=== PATIENT | female | born 1945 | race Caucasian/White ===

== ENCOUNTER → 2017-08-26 | Outpatient (CLI) | payer MEDICARE, MEDICAID ==
[~2017-08-26] MED LIST: ASPIRIN325 MG; ATORVASTATIN CA80 MG PO; B12; BACTRIM DS 8001 TA1; CITALOPRAM40 MG; CITALOPRAM40 MG PO; COPPERAS1 CRE; EFFIENT10 MG; HYDROCHLOROTHIA25 MG; IMDUR60 MG; LIPITOR80 MG; LISINOPRIL20 MG PO; MEDROL DOSEPAK4 MG PO; METOPROLOL SR50 MG; MS CONTIN15 MG PO; NITROSTAT0.4 MG SL; PEPCID20 MG; PEPCID20 MG PO; PROTONIX40 MG; RANEXA500 MG; ROBITUSSIN-AC 160 ML PO; SYNTHROID,LEV112 MCG; SYNTHROID0.2 M1 PO; VIBRAMYCIN100 MG PO; VICO10300 PO; VICODIN ES 7501 TA1 PO; XANAX0.25 MG PO; XANAX0.5 MG PO; ZOFRAN4 MG PO; ZOLOFT25 MG PO; ZOLOFT50 MG PO
[2017-08-26 11:33] LABS: CHOLESTEROL 192 mg/dL (<200); HDL CHOLESTEROL 54 mg/dl (40-60); LDL CHOLESTEROL 83 mg/dL (9-159); TRIGLYCERIDES 274 mg/dl (<150); VLDL CHOLESTEROL 55 mg/dL (6-40)
== END | disposition home or self-care (01) ==
LOC: LAB 10:48
PROVIDERS: Internal Medicine Cardiovascular Disease
DX: E78.5 Hyperlipidemia, unspecified (principal)

== ENCOUNTER → 2017-08-27 | Outpatient (CLI) | payer MEDICARE, MEDICAID ==
--- NOTE | ~2017-08-27 | ST ---
[place], [place] EXERCISE STRESS TEST REPORT NAME[id number] UNIT #: [id number] ROOM: DOCTOR: HUONG AYALA MD BIRTHDATE: [birth year] DOS: 08/27/2017 Lexiscan portion of the Lexiscan Cardiolite. Baseline cardiogram, sinus rhythm with mild ST depression interventricular conduction delay, 0.4 mg Lexiscan, duration of 10 seconds. The patient did have some shortness of breath and chest pain. No new EKG changes. Blood pressure and heart rate response was normal. FINAL IMPRESSION: No new EKG changes with Lexiscan. Positive shortness of breath with Lexiscan. Blood pressure and heart rate response was normal. Nuclear images will be reported separately. HUONG AYALA MD CM:STRESS:EXERCISE STRESS TEST REPORT [id number] HUONG AYALA MD
--- NOTE | 2017-08-27 07:14 | NUR ---
INFORMED CONSENT SIGNED FOR LEXISCAN STRESS TEST WITH DR. AYALA. RESTING EKG SINUS BRADYCARDIA, INCOMPLETE RBBB, HR 54, BP 124/74. PULSE OX 95% AND LUNGS CLEAR. COMPLETED ONE MINUTE OF LEXISCAN PROTOCOL RECEIVING LEXISCAN 0.4MG OVER 10 SECONDS. NO ARRHTHMIAS NOTED AND NO NEW ST CHAGNES. PT C/O SOB AND CHEST DISCOMFORT. LAST RECOVERY HR 63, BP 146/74. WAITING NUCLEAR SCANNING IN STABLE CONDITION.
== END | disposition home or self-care (01) ==
LOC: CARD 00:44
DX: R07.9 Chest pain, unspecified (principal); R53.81 Other malaise; R06.02 Shortness of breath

== ENCOUNTER → 2017-12-06 | Outpatient (CLI) | payer MEDICARE ==
[2017-12-06 11:13] LABS: CREATININE 1.11 mg/dL (0.55-1.02)
== END | disposition home or self-care (01) ==
LOC: LAB 10:24 → CT 11:00
PROVIDERS: Internal Medicine Cardiovascular Disease
DX: I10 Essential (primary) hypertension (principal); R09.89 Other specified symptoms and signs involving the circulatory and respiratory systems

== ENCOUNTER → 2018-01-20 | Outpatient (CLI) | payer MEDICARE ==
[2018-01-20 10:26] LABS: BASO % 0.5 % (0.0-1.0); EOS # 0.1 10*3/uL (0.0-0.4); EOS % 0.8 % (1.0-4.0); HEMATOCRIT 42.1 % (37.0-47.0); HEMOGLOBIN 13.8 g/dl (12.0-16.0); LYMPH # 1.5 10*3/uL (1.3-4.4); LYMPH % 17.3 % (27.0-41.0); MEAN CELL VOLUME 86.1 fl (81.0-99.0); MEAN CORPUSCULAR HGB 28.2 pg (27.0-31.0); MEAN CORPUSCULAR HGB CONC 32.8 g/dl (33.0-37.0); MEAN PLATELET VOLUME 9.3 fl (9.6-12.3); MONO # 0.7 10*3/uL (0.1-1.0); MONO % 7.7 % (3.0-9.0); NEUT # 6.3 10*3/uL (2.3-7.9); NEUT % 73.2 % (47.0-73.0); PLATELET COUNT AUTOMATED 356 10*3/uL (130-400); RED BLOOD COUNT 4.89 10*6/uL (4.10-5.10); WHITE BLOOD COUNT 8.5 10*3/uL (4.8-10.8)
== END | disposition home or self-care (01) ==
LOC: LAB 09:53
PROVIDERS: Nurse Practitioner Family
DX: I65.22 Occlusion and stenosis of left carotid artery (principal); Z98.890 Other specified postprocedural states

== ENCOUNTER 2018-05-11 14:49 | Inpatient (IN) | payer MEDICARE ==
[~2018-05-11] VITALS: Ht 157.4 cm; Wt 83.9 kg
--- NOTE | ~2018-05-11 | EKG ---
[place], [place] ELECTROCARDIOGRAM REPORT NAME: PATRICIA GALLEGOS UNIT #: [id number] ROOM: 405 DOCTOR: NORMA DRAFT REPORT BIRTHDATE: [birth year] [facility] Test Date: 2018-05-11 Test Time: 17:49:20 Pat Name: PATRICIA GALLEGOS Department: Room: 405 Gender: F Deburr Technician: REJI : 1945 Requested By: MEGHNA BELLE Order Number: [id number] Reading MD: Micha Orantes MD Measurements Intervals [place] Rate: 53 P: 5 ME: 190 QRS: -25 QRSD: 116 T: 107 QT: 488 QTc: 459 Interpretive Statements Sinus rhythm Left ventricular hypertrophy Nonspecific ST T changes Electronically Signed On 05-12-2018 8:54:14 PDT by Micha Orantes MD CM:EKGRPT:ELECTROCARDIOGRAM REPORT [id number] MEGHNA GREEN DRAFT REPORT MEGHNA BELLE MD
--- NOTE | ~2018-05-11 | ST ---
[place], [place] EXERCISE STRESS TEST REPORT NAME: PATRICIA GALLEGOS [facility] #: [id number] UNIT #: [id number] ROOM: 405 DOCTOR: HUONG AYALA MD BIRTHDATE: [birth year] DOS: 05/13/2018 PROCEDURE: Lexiscan portion of the Lexiscan Cardiolite. Baseline cardiogram, sinus with poor R-wave progression with nonspecific ST-T changes. A 0.4 mg of Lexiscan, duration of 10 seconds. The patient did have some isolated PVCs. The patient did have some chest heaviness, but no chest discomfort. Blood pressure and heart rate response is normal. FINAL IMPRESSION: No EKG changes with Lexiscan. No chest pain with Lexiscan. Chest heaviness with Lexiscan, isolated premature ventricular complexes. Nuclear images will be reported separately. HUONG AYALA MD CM:STRESS:EXERCISE STRESS TEST REPORT [id number] HUONG AYALA MD
--- NOTE | ~2018-05-11 | CON ---
[place], [place] REPORT OF CONSULTATION NAME: PATRICIA GALLEGOS [facility] #: [id number] UNIT #: [id number] ROOM: 405 DOCTOR: JES JAMES MD BIRTHDATE: [birth year] DOS: 05/12/2018 I am seeing this patient on behalf of Dr. Orantes. HISTORY OF PRESENT ILLNESS: This is a 72-year-old -Cong[place] history of coronary artery disease. She had 3-vessel CABG consisting of vein graft to circumflex, LAD and right coronary artery in the remote past. Last year, she had one of the vessels stented; it is not clear which one. Her LV systolic function had been noted to be low normal. She has hypothyroidism, has had pulmonary embolism in the past, GERD, hyperlipidemia, essential hypertension, DVT, and has never had a stroke or diabetes mellitus. She has had right carotid endarterectomy in the remote past and cholecystectomy, hysterectomy and knee replacement and neck surgery. She does not smoke nor does she drink alcoholic beverages. She lives at home. She had chest discomfort on and off over the last few months, but she got rather concerned yesterday. While sitting at home, she developed anterior chest pressure and heaviness that went to the left side of the neck and into the left shoulder and upper arm. It lasted for about 15 minutes. She took nitroglycerin with ____ significant symptoms significantly. She was a little clammy and then sweated and then also had mild nausea, but no palpitation, dizziness or loss of consciousness. She has not had any swelling of the legs. HOME MEDICATIONS: Include aspirin, atorvastatin, citalopram, ranitidine, hydrochlorothiazide, isosorbide mononitrate 60 b.i.d., levothyroxine, lisinopril, metoprolol succinate 50 b.i.d., Effient 10 mg daily, ranolazine 1 gram b.i.d., sertraline 50 mg in the morning and 25 in the evening. PHYSICAL EXAMINATION: GENERAL: This reveals a patient who is very pleasant, alert. She is moderately obese. Complexion is fine. There is no thyromegaly or finger clubbing. VITAL SIGNS: Pulse is 72 and regular, blood pressure 124/60. NECK: Normal JVP. Right carotid bruit is present. Left carotid endarterectomy scar is noted. HEART: Cardiac auscultation reveals no murmurs or rubs. EXTREMITIES: Pedal pulses are excellent. No edema in the lower extremities. RESPIRATORY: Lungs are clear to percussion and auscultation. She has no tachypneic. DIAGNOSTIC STUDIES: An ECG showed incomplete left bundle-branch block with ST segment depression, T-wave abnormality in 1 and aVL, which remains unchanged on the subsequent ECG. Troponin I level was 0.018 and 0.016. Chest x-ray was unremarkable. IMPRESSION: This patient with known coronary artery disease and coronary artery bypass surgery and coronary stents, had acute symptoms that are highly suggestive of acute myocardial ischemia. Symptoms ____ by the sublingual [place], [place] REPORT OF CONSULTATION NAME: PATRICIA GALLEGOS UNIT #: [id number] ROOM: 405 DOCTOR: JES JAMES MD BIRTHDATE: [birth year] nitroglycerin. She has ruled out for acute myocardial infarction and a Lexiscan Cardiolite study has been scheduled for tomorrow, which Dr. Orantes will do. My suspicion for significant coronary artery stenosis is high in this patient. Current rate is fine. I thank you on behalf of Dr. Orantes for this consult. JES JAMES MD CM:CONSTR:REPORT OF CONSULTATION 1129 05/12/18 2000 interface
--- NOTE | ~2018-05-11 | EKG ---
[place], [place] ELECTROCARDIOGRAM REPORT NAME: PATRICIA GALLEGOS UNIT #: [id number] ROOM: 405 DOCTOR: NORMA DRAFT REPORT BIRTHDATE: [birth year] [facility] Test Date: 2018-05-11 Test Time: 20:53:14 Pat Name: PATRICIA GALLEGOS Department: [facility] Room: 405 Gender: F Baggage [employer] Mail Agent: Ozzie Wilson : 1945 Requested By: MEGHNA BELLE Order Number: [id number] Reading MD: Micha Orantes MD Measurements Intervals [place] Rate: 60 P: 32 VT: 182 QRS: -16 QRSD: 118 T: 113 QT: 476 QTc: 476 Interpretive Statements Sinus rhythm Probable left atrial enlargement LVH with IVCD and secondary repol abnrm Electronically Signed On 05-12-2018 8:54:27 PDT by Micha Orantes MD CM:EKGRPT:ELECTROCARDIOGRAM REPORT [id number] MEGHNA GREEN DRAFT REPORT MEGHNA BELLE MD
--- NOTE | ~2018-05-11 | EKG ---
[place], [place] ELECTROCARDIOGRAM REPORT NAME: PATRICIA GALLEGOS UNIT #: [id number] ROOM: 405 DOCTOR: NORMA DRAFT REPORT BIRTHDATE: [birth year] [facility] Test Date: 2018-05-11 Test Time: 14:50:47 Pat Name: PATRICIA GALLEGOS Department: Room: 405 Gender: F Optometric Tech: REJI : 1945 Requested By: MEGHNA BELLE Order Number: [id number] Reading MD: Micha Orantes MD Measurements Intervals [place] Rate: 56 P: 19 VT: 192 QRS: -15 QRSD: 120 T: 140 QT: 442 QTc: 427 Interpretive Statements Sinus rhythm LVH with IVCD and secondary repol abnrm Electronically Signed On 05-12-2018 8:53:34 PDT by Micha Orantes MD CM:EKGRPT:ELECTROCARDIOGRAM REPORT [id number] MEGHNA GREEN DRAFT REPORT MEGHNA BELLE MD
[2018-05-11 14:52] VITALS: BP 136/64
[2018-05-11 15:11] LABS: BASO % 0.6 % (0.0-1.0); EOS # 0.1 10*3/uL (0.0-0.4); EOS % 1.1 % (1.0-4.0); HEMATOCRIT 36.4 % (37.0-47.0); HEMOGLOBIN 11.5 g/dl (12.0-16.0); LYMPH # 1.5 10*3/uL (1.3-4.4); LYMPH % 23.1 % (27.0-41.0); MEAN CELL VOLUME 91.2 fl (81.0-99.0); MEAN CORPUSCULAR HGB 28.8 pg (27.0-31.0); MEAN CORPUSCULAR HGB CONC 31.6 g/dl (33.0-37.0); MEAN PLATELET VOLUME 10.1 fl (9.6-12.3); MONO # 0.5 10*3/uL (0.1-1.0); MONO % 8.2 % (3.0-9.0); NEUT # 4.4 10*3/uL (2.3-7.9); NEUT % 66.5 % (47.0-73.0); PLATELET COUNT AUTOMATED 238 10*3/uL (130-400); RED BLOOD COUNT 3.99 10*6/uL (4.10-5.10); RED CELL DISTRI WIDTH 14.3 % (0-14.5); WHITE BLOOD COUNT 6.6 10*3/uL (4.8-10.8)
[2018-05-11 15:22] LABS: ACT PARTIAL THROMBO TIME 21.1 SECONDS (20.8-31.5); INTERNATIONAL NORM RATIO 0.9 (2.0-3.5)
[2018-05-11 15:29] LABS: ALBUMIN 3.7 gm/dl (3.1-4.5); CREATININE 1.2 mg/dL (0.55-1.02); POTASSIUM 4.5 mmol/L (3.5-5.1); TOTAL PROTEIN 7.2 gm/dL (6.4-8.2); TROPONIN I 0.018 ng/ml (<0.045)
[2018-05-11 16:02] VITALS: BP 149/64
[2018-05-11 17:10] VITALS: BP 135/50
[2018-05-11 20:00] VITALS: BP 127/50
[2018-05-12] VITALS: BP 114/54
[2018-05-12 06:46] LABS: BASO % 0.7 % (0.0-1.0); EOS # 0.1 10*3/uL (0.0-0.4); EOS % 1.2 % (1.0-4.0); HEMOGLOBIN 11.2 g/dl (12.0-16.0); LYMPH # 1.1 10*3/uL (1.3-4.4); LYMPH % 19.4 % (27.0-41.0); MEAN CELL VOLUME 90.9 fl (81.0-99.0); MEAN CORPUSCULAR HGB 28.3 pg (27.0-31.0); MEAN CORPUSCULAR HGB CONC 31.1 g/dl (33.0-37.0); MEAN PLATELET VOLUME 10.2 fl (9.6-12.3); MONO # 0.5 10*3/uL (0.1-1.0); MONO % 8.4 % (3.0-9.0); NEUT % 69.8 % (47.0-73.0); PLATELET COUNT AUTOMATED 224 10*3/uL (130-400); RED BLOOD COUNT 3.96 10*6/uL (4.10-5.10); RED CELL DISTRI WIDTH 14.1 % (0-14.5); WHITE BLOOD COUNT 5.7 10*3/uL (4.8-10.8)
[2018-05-12 06:49] LABS: ALBUMIN 3.3 gm/dl (3.1-4.5); ALKALINE PHOSPHATASE 79 U/L (45-117); BUN 24 mg/dl (7-24); CHLORIDE 110 mmol/L (98-107); CHOLESTEROL 165 mg/dL (<200); CREATININE 1.07 mg/dL (0.55-1.02); FREE T4 1.08 ng/dl (0.76-1.46); HDL CHOLESTEROL 49 mg/dl (40-60); LDL CHOLESTEROL 82 mg/dL (9-159); PHOSPHOROUS 3.4 mg/dL (2.5-4.9); POTASSIUM 4.3 mmol/L (3.5-5.1); SGOT/AST 14 IU/L (3-35); SGPT/ALT 26 U/L (12-78); SODIUM 143 mmol/L (136-145); TOTAL PROTEIN 6.7 gm/dL (6.4-8.2); TRIGLYCERIDES 168 mg/dl (<150); VLDL CHOLESTEROL 34 mg/dL (6-40)
[2018-05-12 07:34] LABS: VITAMIN D, 25-HYDROXY 19.7 ng/mL (30-100)
[2018-05-12 08:00] VITALS: BP 124/60
[2018-05-12 12:00] VITALS: BP 150/57
[2018-05-12 16:00] VITALS: BP 117/42
[2018-05-12 20:00] VITALS: BP 125/63
[2018-05-13] VITALS: BP 135/53
[2018-05-13 08:30] VITALS: BP 130/72
[2018-05-13 12:00] VITALS: BP 162/76
[2018-05-13 18:00] VITALS: BP 127/49
[2018-05-13 20:00] VITALS: BP 141/57
[2018-05-14] VITALS: BP 103/44
== END 2018-05-14 06:55 | disposition other institution (70) | DRG 303 ==
LOC: ED 14:49 → EDHOLD 16:16 → 4E 16:16
PROVIDERS: Emergency Medicine; Internal Medicine
PROC: 4A02XM4 Measurement of Cardiac Total Activity, External Approach (ICD-10-PCS; principal; 2018-05-13)
PROC: 3E073KZ Introduction of Other Diagnostic Substance into Coronary Artery, Percutaneous Approach (ICD-10-PCS; principal; 2018-05-13)
DX: I25.9 Chronic ischemic heart disease, unspecified (principal); E03.9 Hypothyroidism, unspecified; I25.10 Atherosclerotic heart disease of native coronary artery without angina pectoris; Z96.653 Presence of artificial knee joint, bilateral; E78.5 Hyperlipidemia, unspecified; E55.9 Vitamin D deficiency, unspecified; I10 Essential (primary) hypertension; K21.9 Gastro-esophageal reflux disease without esophagitis; E66.9 Obesity, unspecified; Z86.718 Personal history of other venous thrombosis and embolism; Z88.1 Allergy status to other antibiotic agents; Z88.0 Allergy status to penicillin; Z79.82 Long term (current) use of aspirin; Z79.899 Other long term (current) drug therapy; Z87.81 Personal history of (healed) traumatic fracture; Z91.81 History of falling; Z95.1 Presence of aortocoronary bypass graft; Z90.49 Acquired absence of other specified parts of digestive tract; Z90.710 Acquired absence of both cervix and uterus; Z82.49 Family history of ischemic heart disease and other diseases of the circulatory system; Z83.3 Family history of diabetes mellitus; Z82.3 Family history of stroke; I25.2 Old myocardial infarction; Z86.711 Personal history of pulmonary embolism; Z85.118 Personal history of other malignant neoplasm of bronchus and lung; Z68.33 Body mass index [BMI] 33.0-33.9, adult

== ENCOUNTER → 2018-09-29 | Outpatient (CLI) | payer MEDICARE ==
--- NOTE | ~2018-09-29 | EKG ---
[place], [place] ELECTROCARDIOGRAM REPORT NAME: PATRICIA GALLEGOS UNIT #: [id number] ROOM: DOCTOR: EPIPHANY DRAFT REPORT BIRTHDATE: [birth year] [facility] Test Date: 2018-09-29 Test Time: 10:21:05 Pat Name: PATRICIA GALLEGOS Department: Room: Gender: F Study Lead: Nicole Albarran : 1945 Requested By: TERENCE KOO Order Number: [id number] Reading MD: Tatum Potter MD Measurements Intervals [place] Rate: 56 P: 27 AK: 182 QRS: -20 QRSD: 118 T: 119 QT: 468 QTc: 452 Interpretive Statements Sinus rhythm Ventricular premature complex LVH with IVCD and secondary repol abnrm Compared to ECG 05/11/2018 20:53:14 Ventricular premature complex(es) now present Electronically Signed On 09-29-2018 7:54:37 PST by Tatum Potter MD CM:EKGRPT:ELECTROCARDIOGRAM REPORT [id number] TERENCE GREEN DRAFT REPORT TERENCE KOO
[2018-09-29 10:44] LABS: BASO % 0.6 % (0.0-1.0); EOS # 0.1 10*3/uL (0.0-0.4); EOS % 1.5 % (1.0-4.0); HEMATOCRIT 40.6 % (37.0-47.0); HEMOGLOBIN 12.6 g/dl (12.0-16.0); LYMPH # 1.4 10*3/uL (1.3-4.4); MEAN CELL VOLUME 84.8 fl (81.0-99.0); MEAN CORPUSCULAR HGB 26.3 pg (27.0-31.0); MEAN PLATELET VOLUME 9.9 fl (9.6-12.3); MONO # 0.6 10*3/uL (0.1-1.0); MONO % 8.9 % (3.0-9.0); NEUT # 4.1 10*3/uL (2.3-7.9); NEUT % 66.5 % (47.0-73.0); PLATELET COUNT AUTOMATED 280 10*3/uL (130-400); RED BLOOD COUNT 4.79 10*6/uL (4.10-5.10); RED CELL DISTRI WIDTH 16.2 % (0-14.5); WHITE BLOOD COUNT 6.2 10*3/uL (4.8-10.8)
[2018-09-29 11:11] LABS: CREATININE 1.13 mg/dL (0.55-1.02); POTASSIUM 4.6 mmol/L (3.5-5.1)
== END | disposition home or self-care (01) ==
LOC: LAB 09:59
DX: S42.201D Unspecified fracture of upper end of right humerus, subsequent encounter for fracture with routine healing (principal); X58.XXXD Exposure to other specified factors, subsequent encounter; I25.810 Atherosclerosis of coronary artery bypass graft(s) without angina pectoris; Z87.891 Personal history of nicotine dependence

== ENCOUNTER → 2019-12-05 | Emergency (ER) | payer MEDICARE ==
[~2019-12-05] VITALS: Ht 157.4 cm; Wt 97.5 kg
[~2019-12-05] MED LIST changes: +AMLODIPINE BESY10 MG PO; +ASPIRIN325 M2 PO; +ATORVASTATIN CA80 M1 PO; +CYCLOBENZAPRINE5 M3 PO; +ESCITALOPRAM OX20 MG PO; +HYDROCHLOROTHIA25 M1 PO; +HYDROCODONE-AC1 EACH PO; +MELATONIN5 M6 PO; -METOPROLOL SR50 MG; +METOPROLOL SUCC50 M2 PO; +METOPROLOL TART50 M1 PO; +MONTELUKAST SOD10 MG PO; +PANTOPRAZOLE SO20 MG PO; +PREDNISONE50 MG PO; +PROTONIX20 MG PO; +RANOLAZINE ER1000 MG PO; +SYNTHROID,LEV175 MCG PO; +TESSALON PERLE100 MG PO
[2019-12-05 18:53] VITALS: BP 164/75
[2019-12-05 19:30] LABS: BASO % 0.3 % (0.0-1.0); EOS # 0.1 10*3/uL (0.0-0.4); EOS % 1.1 % (1.0-4.0); HEMATOCRIT 42.7 % (37.0-47.0); HEMOGLOBIN 13.6 g/dl (12.0-16.0); LYMPH # 1.7 10*3/uL (1.3-4.4); LYMPH % 23.7 % (27.0-41.0); MEAN CELL VOLUME 92.2 fl (81.0-99.0); MEAN CORPUSCULAR HGB 29.4 pg (27.0-31.0); MEAN CORPUSCULAR HGB CONC 31.9 g/dl (33.0-37.0); MEAN PLATELET VOLUME 10.2 fl (9.6-12.3); MONO # 0.5 10*3/uL (0.1-1.0); MONO % 7.3 % (3.0-9.0); NEUT # 4.8 10*3/uL (2.3-7.9); NEUT % 67.3 % (47.0-73.0); PLATELET COUNT AUTOMATED 262 10*3/uL (130-400); RED BLOOD COUNT 4.63 10*6/uL (4.10-5.10); RED CELL DISTRI WIDTH 14.6 % (0-14.5); WHITE BLOOD COUNT 7.2 10*3/uL (4.8-10.8)
[2019-12-05 19:44] LABS: ALBUMIN 3.4 gm/dl (3.1-4.5); ALKALINE PHOSPHATASE 111 U/L (45-117); BUN 19 mg/dl (7-24); CHLORIDE 106 mmol/L (98-107); CREATININE 1.07 mg/dL (0.55-1.02); POTASSIUM 4.2 mmol/L (3.5-5.1); SGOT/AST 21 IU/L (3-35); SGPT/ALT 33 U/L (12-78); SODIUM 140 mmol/L (136-145); TOTAL PROTEIN 7.3 gm/dL (6.4-8.2)
[2019-12-05 19:51] LABS: ACT PARTIAL THROMBO TIME 25.8 SECONDS (20.0-32.1); INTERNATIONAL NORM RATIO 0.8 (2.0-3.5)
== END ==
LOC: ED 18:45
PROVIDERS: Internal Medicine
DX: M17.12 Unilateral primary osteoarthritis, left knee (principal); I10 Essential (primary) hypertension; I25.10 Atherosclerotic heart disease of native coronary artery without angina pectoris; K21.9 Gastro-esophageal reflux disease without esophagitis; E78.5 Hyperlipidemia, unspecified; E03.9 Hypothyroidism, unspecified; I25.2 Old myocardial infarction; Z88.0 Allergy status to penicillin; Z91.048 Other nonmedicinal substance allergy status; Z79.899 Other long term (current) drug therapy; Z79.82 Long term (current) use of aspirin; Z90.49 Acquired absence of other specified parts of digestive tract; Z90.710 Acquired absence of both cervix and uterus; Z98.61 Coronary angioplasty status; X50.1XXA Overexertion from prolonged static or awkward postures, initial encounter; Y93.01 Activity, walking, marching and hiking; Y92.090 Kitchen in other non-institutional residence as the place of occurrence of the external cause; Y99.8 Other external cause status

== ENCOUNTER → 2020-05-31 | Outpatient (CLI) | payer MEDICARE ==
[~2020-05-31] MED LIST changes: +MELATONIN10 M4 PO; -MELATONIN5 M6 PO; +SOF-LAX100 MG PO
--- NOTE | 2020-05-31 06:50 | NUR ---
INFORMED CONSENT OBTAINED FOR LEXISCAN NUCLEAR STRESS TEST WITH DR. AYALA. RESTING EKG NSR WITH A RESTING HR OF 67 WITH BP OF 140/72. HAS RARE PVC'S. LUNGS CLEAR WITH SPO2 OF 95% ON ROOM AIR. PT COMPLETED A 1:00 LEXISCAN PROTOCOL RECEIVING LEXISCAN 0.4 MG IV OVER 10 SECONDS. HAD NO CHEST PAIN OR ANY EKG CHANGES. DID C/O BACK DISCOMFORT THAT RESOLVED IN RECOVERY. HAD A [place]AK[place] HR OF 82 WITH BP OF 128/68. LAST RECOVERY HR OF 73 WITH BP OF 126/70. AWAITING SCANNING IN STABLE CONDITION.
== END | disposition home or self-care (01) ==
LOC: CARD 00:38
DX: R07.9 Chest pain, unspecified (principal); R94.39 Abnormal result of other cardiovascular function study

== ENCOUNTER → 2020-06-17 | Outpatient (CLI) | payer MEDICARE | END | disposition home or self-care (01) | LOC: RAD 10:05 | PROVIDERS: ATTEND Physician Assistant | DX: M25.512 Pain in left shoulder (principal) ==

== ENCOUNTER → 2021-02-06 | Outpatient (CLI) | payer OTHER ==
[2021-02-06 10:55] LABS: CHOLESTEROL 198 mg/dL (<200); HDL CHOLESTEROL 52 mg/dl (40-60); LDL CHOLESTEROL 82 mg/dL (9-159); TRIGLYCERIDES 318 mg/dl (<150); VLDL CHOLESTEROL 64 mg/dL (6-40)
== END | disposition home or self-care (01) ==
LOC: LAB 10:11
PROVIDERS: ATTEND Internal Medicine Cardiovascular Disease
DX: E78.5 Hyperlipidemia, unspecified (principal)

== ENCOUNTER → 2021-10-10 | Outpatient (CLI) | payer OTHER | END | disposition home or self-care (01) | LOC: RAD 10:14 | PROVIDERS: ATTEND Physician Assistant | DX: R10.31 Right lower quadrant pain (principal) ==

== ENCOUNTER 2022-05-10 21:55 | Emergency (ER) | payer OTHER ==
[~2022-05-10] VITALS: Wt 78.9 kg
[2022-05-10 23:01] LABS: BASO # 0.1 10*3/uL (0.0-0.1); BASO % 0.7 % (0.0-1.0); EOS # 0.1 10*3/uL (0.0-0.4); EOS % 1.6 % (1.0-4.0); HEMATOCRIT 38.4 % (37.0-47.0); LYMPH # 1.5 10*3/uL (1.3-4.4); MEAN CELL VOLUME 85.5 fl (81.0-99.0); MEAN CORPUSCULAR HGB 27.2 pg (27.0-31.0); MEAN CORPUSCULAR HGB CONC 31.8 g/dl (33.0-37.0); MEAN PLATELET VOLUME 10.4 fl (9.6-12.3); MONO # 0.6 10*3/uL (0.1-1.0); MONO % 7.2 % (3.0-9.0); NEUT # 5.5 10*3/uL (2.3-7.9); NEUT % 71.4 % (47.0-73.0); PLATELET COUNT AUTOMATED 251 10*3/uL (130-400); RED BLOOD COUNT 4.49 10*6/uL (4.10-5.10); RED CELL DISTRI WIDTH 16.4 % (0-14.5); WHITE BLOOD COUNT 7.7 10*3/uL (4.8-10.8)
[2022-05-10 23:06] LABS: BILIRUBIN Negative (Negative); BLOOD Negative (Negative); CLARITY Clear (Clear); COLOR Yellow (Yellow); GLUCOSE Negative (Negative); KETONE Negative (Negative); LEUKO ESTERASE 1+ (Negative); NITRITE Negative (Negative); UROBILINOGEN 0.2 E.U./dl (0.0-1.0)
[2022-05-10 23:17] LABS: CREATININE 1.54 mg/dL (0.55-1.02); POTASSIUM 4.2 mmol/L (3.5-5.1)
[2022-05-11 02:02] VITALS: BP 115/53
== END 2022-05-11 02:18 | disposition home or self-care (01) ==
LOC: ED 21:55
PROVIDERS: Emergency Medicine
DX: R10.9 Unspecified abdominal pain (principal); R11.0 Nausea; I48.91 Unspecified atrial fibrillation; K21.9 Gastro-esophageal reflux disease without esophagitis; E03.9 Hypothyroidism, unspecified; I10 Essential (primary) hypertension; I25.2 Old myocardial infarction; E78.5 Hyperlipidemia, unspecified; Z88.0 Allergy status to penicillin; Z79.899 Other long term (current) drug therapy; Z90.710 Acquired absence of both cervix and uterus; Z90.49 Acquired absence of other specified parts of digestive tract; Z98.890 Other specified postprocedural states; Z87.891 Personal history of nicotine dependence

== ENCOUNTER → 2022-05-18 | Outpatient (CLI) | payer OTHER ==
[2022-05-18 10:30] LABS: CREATININE 1.58 mg/dL (0.55-1.02)
== END | disposition home or self-care (01) ==
LOC: LAB 09:54
PROVIDERS: ATTEND Surgery
DX: K52.9 Noninfective gastroenteritis and colitis, unspecified (principal)

== ENCOUNTER → 2022-05-23 | Outpatient (CLI) | payer OTHER | END | disposition home or self-care (01) | LOC: CT 05-22 09:00 | PROVIDERS: ATTEND Surgery | DX: K57.33 Diverticulitis of large intestine without perforation or abscess with bleeding (principal); N13.30 Unspecified hydronephrosis; I25.10 Atherosclerotic heart disease of native coronary artery without angina pectoris; I70.0 Atherosclerosis of aorta; K52.9 Noninfective gastroenteritis and colitis, unspecified ==

== ENCOUNTER → 2022-07-17 | Outpatient (CLI) | payer OTHER, MEDICAID | END | disposition home or self-care (01) | LOC: RAD 13:29 | PROVIDERS: ATTEND Urology | DX: N20.0 Calculus of kidney (principal); M85.88 Other specified disorders of bone density and structure, other site; I70.0 Atherosclerosis of aorta; Z90.49 Acquired absence of other specified parts of digestive tract ==

== ENCOUNTER 2023-01-10 10:56 | Emergency (ER) | payer OTHER ==
[~2023-01-10] VITALS: Ht 157.4 cm; Wt 82.6 kg
[2023-01-10 11:12] VITALS: BP 162/88
[2023-01-10] MEDS ORDERED: PREPARATION H R28 GM R ×2 (11:25)
== END 2023-01-10 11:44 | disposition home or self-care (01) ==
LOC: ED 10:56
DX: K59.00 Constipation, unspecified (principal); Z88.0 Allergy status to penicillin; Z79.899 Other long term (current) drug therapy; Z90.710 Acquired absence of both cervix and uterus; Z98.890 Other specified postprocedural states; Z87.891 Personal history of nicotine dependence

== ENCOUNTER 2023-02-22 18:58 | Emergency (ER) | payer OTHER, MEDICAID ==
[~2023-02-22] VITALS: Ht 157.4 cm; Wt 83.9 kg
[~2023-02-22 18:58] MED LIST changes: +PREPARATION H R28 GM R
[2023-02-22 19:18] VITALS: BP 166/46
[2023-02-22] MEDS ORDERED: METHOCARBAMOL500 M1 PO (20:52)
[2023-02-22] MEDS ORDERED: NAPROXEN250 MG PO (20:52)
== END 2023-02-22 21:11 | disposition home or self-care (01) ==
LOC: ED 18:58
DX: S39.012A Strain of muscle, fascia and tendon of lower back, initial encounter (principal); Z88.0 Allergy status to penicillin; Z79.899 Other long term (current) drug therapy; Z98.890 Other specified postprocedural states; Z90.710 Acquired absence of both cervix and uterus; Z90.49 Acquired absence of other specified parts of digestive tract; Z95.1 Presence of aortocoronary bypass graft; Z87.891 Personal history of nicotine dependence; X58.XXXA Exposure to other specified factors, initial encounter; Y93.89 Activity, other specified; Y92.89 Other specified places as the place of occurrence of the external cause; Y99.8 Other external cause status

== ENCOUNTER 2023-04-30 06:04 | Inpatient (IN) | payer OTHER, MEDICAID ==
[~2023-04-30] VITALS: Ht 157.5 cm; Wt 84.9 kg
[~2023-04-30 06:04] MED LIST changes: +METHOCARBAMOL500 M1 PO; +NAPROXEN250 MG PO
[2023-04-30 06:15] VITALS: BP 127/37
[2023-04-30 07:01] LABS: BASO % 0.4 % (0.0-1.0); EOS # 0.1 10*3/uL (0.0-0.4); EOS % 0.7 % (1.0-4.0); HEMATOCRIT 37.5 % (37.0-47.0); LYMPH # 1.4 10*3/uL (1.3-4.4); LYMPH % 19.5 % (27.0-41.0); MEAN CELL VOLUME 100.5 fl (81.0-99.0); MEAN CORPUSCULAR HGB 31.4 pg (27.0-31.0); MEAN CORPUSCULAR HGB CONC 31.2 g/dl (33.0-37.0); MEAN PLATELET VOLUME 9.7 fl (9.6-12.3); MONO # 0.5 10*3/uL (0.1-1.0); MONO % 7.4 % (3.0-9.0); NEUT # 5.1 10*3/uL (2.3-7.9); NEUT % 71.4 % (47.0-73.0); PLATELET COUNT AUTOMATED 209 10*3/uL (130-400); RED BLOOD COUNT 3.73 10*6/uL (4.10-5.10); WHITE BLOOD COUNT 7.2 10*3/uL (4.8-10.8)
[2023-04-30 07:29] LABS: POTASSIUM 4.9 mmol/L (3.4-5.1); TOTAL PROTEIN 6.3 gm/dL (6.0-8.0)
[2023-04-30 07:33] LABS: ACT PARTIAL THROMBO TIME 25.9 SECONDS (20.0-32.1); INTERNATIONAL NORM RATIO 0.9 (2.0-3.5)
[2023-04-30 08:01] VITALS: BP 116/37
[2023-04-30 08:33] LABS: BILIRUBIN Negative (Negative); BLOOD Negative (Negative); CLARITY Clear (Clear); COLOR Yellow (Yellow); GLUCOSE Negative (Negative); KETONE Negative (Negative); LEUKO ESTERASE Negative (Negative); NITRITE Negative (Negative); PH 5.5 (4.5-8.0); UROBILINOGEN 0.2 E.U./dl (0.0-1.0)
[2023-04-30 08:42] LABS: URIC ACID CRYSTALS 1+
[2023-04-30 08:43] LABS: BACTERIA 1+
[2023-04-30] MEDS ORDERED: Meclizine25 MG PO (11:32)
[2023-04-30] MEDS ORDERED: CLOPIDOGREL75 MG PO (11:32)
[2023-04-30] MEDS ORDERED: IRON325 M1 PO (11:33)
[2023-04-30] MEDS ORDERED: XTAMPZA ER13.5 MG PO (11:34)
[2023-04-30 12:00] VITALS: BP 150/57
[2023-04-30 16:00] VITALS: BP 115/75
[2023-04-30 18:07] VITALS: BP 150/57
[2023-04-30] MEDS ORDERED: METAMUCIL FIBE3.4 GM PO (18:12)
[2023-04-30 20:00] VITALS: BP 115/75
[2023-05-01] VITALS: BP 120/48
[2023-05-01 07:26] LABS: BASO % 0.1 % (0.0-1.0); HEMATOCRIT 39.8 % (37.0-47.0); LYMPH # 1.7 10*3/uL (1.3-4.4); LYMPH % 15.8 % (27.0-41.0); MEAN CELL VOLUME 97.8 fl (81.0-99.0); MEAN CORPUSCULAR HGB 31.2 pg (27.0-31.0); MEAN CORPUSCULAR HGB CONC 31.9 g/dl (33.0-37.0); MONO # 0.7 10*3/uL (0.1-1.0); MONO % 6.2 % (3.0-9.0); NEUT # 8.2 10*3/uL (2.3-7.9); NEUT % 77.3 % (47.0-73.0); PLATELET COUNT AUTOMATED 251 10*3/uL (130-400); RED BLOOD COUNT 4.07 10*6/uL (4.10-5.10); RED CELL DISTRI WIDTH 14.2 % (0-14.5); WHITE BLOOD COUNT 10.5 10*3/uL (4.8-10.8)
[2023-05-01 08:00] VITALS: BP 160/70
[2023-05-01 08:24] LABS: FREE T4 1.72 ng/dl (0.89-1.76); POTASSIUM 4.8 mmol/L (3.4-5.1); TOTAL PROTEIN 7.1 gm/dL (6.0-8.0)
[2023-05-01 08:25] LABS: VITAMIN D, 25-HYDROXY 16.8 ng/mL (30-100)
[2023-05-01] MEDS ORDERED: TRAMADOL HYDRO100 MG PO (09:17)
[2023-05-01] MEDS ORDERED: HYDROCODONE-AC1 EAC1 PO (09:18)
[2023-05-01 12:00] VITALS: BP 128/51
[2023-05-01] MEDS ORDERED: PANTOPRAZOLE SO20 MG PO ×2 (12:02→12:03)
== END 2023-05-01 13:50 | disposition home or self-care (01) | DRG 640 ==
LOC: ED 06:04 → 5E 08:27 → EDHOLD 08:27 → 5E 16:33
PROVIDERS: Internal Medicine; Registered Nurse; ADMIT Internal Medicine; ATTEND Internal Medicine
DX: E86.0 Dehydration (principal); J96.01 Acute respiratory failure with hypoxia; N17.0 Acute kidney failure with tubular necrosis; I24.8 Other forms of acute ischemic heart disease; I25.10 Atherosclerotic heart disease of native coronary artery without angina pectoris; E78.5 Hyperlipidemia, unspecified; E78.00 Pure hypercholesterolemia, unspecified; K21.9 Gastro-esophageal reflux disease without esophagitis; Z88.0 Allergy status to penicillin; Z90.49 Acquired absence of other specified parts of digestive tract; Z95.5 Presence of coronary angioplasty implant and graft; Z90.710 Acquired absence of both cervix and uterus; Z95.1 Presence of aortocoronary bypass graft; Z80.1 Family history of malignant neoplasm of trachea, bronchus and lung; Z82.49 Family history of ischemic heart disease and other diseases of the circulatory system